=== PATIENT | female | born 1955 | race Caucasian/White ===

== ENCOUNTER 2021-05-28 13:04 | Outpatient (CLI) | payer MEDICARE ==
[2021-05-28 15:00] LABS: Bilirubin Neg (Negative); Blood, Urine Negative (Negative); Clarity Clear (Clear); Glucose, Urine (Dipstick) Normal (Negative); Ketone, Urine Negative (Negative); Leukocyte 25 (Negative); Nitrite Negative (Negative); Protein, Urine (Dipstick) Negative (Neg-Trace); Urobilinogen Normal mg/dL (Less than 2); pH, Urine 6.5 (5.0-9.0)
[2021-05-28 15:03] LABS: #Basophils 0.1 10x3/uL (0.0-0.2); #Eosinphils 0.2 10x3/uL (0.0-0.5); #Monocytes 0.5 10x3/uL (0.0-1.1); #Neutrophils 4.5 10x3/uL (1.5-8.4); %Basophils 0.9 % (0.0-2.0); %Eosinophils 2.4 % (0.0-6.0); %Lymphocytes 32.5 % (18.0-47.0); %Monocytes 6.7 % (0.0-10.0); %Neutrophils 57.4 % (40.0-75.0); Hemoglobin 13.5 g/dL (12.0-15.5); Mean Corpuscular HGB CONC 32.9 g/dL (32.0-36.0); Mean Corpuscular Hemoglobin 31.8 pg (27.0-33.0); Mean Corpuscular Volume 96.5 fl (81.6-98.3); Mean Platelet Volume 11.3 fl (7.4-10.4); Platelet Count 227 10x3/uL (150-450); RBC Distribution Width 12.5 % (11.5-14.5); Red Blood Cell (RBC) Count 4.25 10x6/uL (3.90-5.03); White Blood Cell (WBC) Count 7.9 10x3/uL (3.5-10.5)
[2021-05-28 15:13] LABS: Anion Gap 12 mmol/L (10-20); BUN (Urea Nitrogen) 21 mg/dL (9.8-20.1); Calc. Creatinine Clearance 0 mL/min (70-130); Calcium 9.2 mg/dL (7.8-10.44); Carbon Dioxide 27 mmol/L (23-31); Chloride 107 mmol/L (98-107); Glucose 82 mg/dL (80-115); Sodium 142 mmol/L (136-145)
[2021-05-28 15:18] LABS: Bacteria/HPF 1+ HPF (None Seen); RBC/HPF 0-3 HPF (0-3); Squamous Epithelial 0-3 HPF (0-3)
[2021-05-29 12:00] LABS: SARS-CoV-2 PCR by NAA Not Detected (NotDetected)
== END 2021-05-28 13:05 | disposition home or self-care (01) ==
LOC: LABBT 13:04
PROVIDERS: ATTEND Orthopaedic Surgery
DX: Z01.818 Encounter for other preprocedural examination (principal); M16.12 Unilateral primary osteoarthritis, left hip; Z20.822 Contact with and (suspected) exposure to COVID-19
CPT/HCPCS: 80048; 85025; 87081; 93005; U0003; U0005; 81003; 81015; 93010

== ENCOUNTER 2021-06-02 06:27 | Day surgery (SDC) | payer MEDICARE ==
[2021-05-29 13:28] VITALS: BMI 36.6
[2021-06-02] MEDS ORDERED: ceFAZolin 2 GM/DEX 5% 100 ML BAG ONE (07:37)
[2021-06-02] MEDS ORDERED: Sodium Chloride 0.9% 100 ML ONE (07:37)
[2021-06-02] MEDS ORDERED: Tranexamic Acid 1,000 MG/10 ML VIAL ONE (07:37)
[2021-06-02] MEDS ORDERED: Vancomycin 1.5 GRAM/300 ML BAG 1.5 GM in Premix Bag 1 BAG IVPB SCH (07:45)
[2021-06-02] MEDS ORDERED: Midazolam HCl 2 mg/2 ml Vial ONE (07:51)
[2021-06-02] MEDS ORDERED: Fentanyl 100 MCG/2 ML VIAL ONE ×3 (07:51→11:45)
[2021-06-02 08:31] LABS: INR-International Normal Ratio 1.3
[2021-06-02 08:32] LABS: PTT 30.4 sec (22.9-36.1)
[2021-06-02] MEDS ORDERED: Propofol 500 MG/50 ML VIAL ONE (09:04)
[2021-06-02] MEDS ORDERED: PROPOFOL 200 MG/20 ML VIAL ONE (09:22)
[2021-06-02] MEDS ORDERED: ePHEDrine 50 MG/ML VIAL ONE (09:22)
[2021-06-02] MEDS ORDERED: Bupivacaine HCl 0.5%/Epinephrine 1:200,000/PF 30 ml Vial ONE (09:22)
[2021-06-02] MEDS ORDERED: Phenylephrine 10 MG/ML VIAL ONE (09:22)
[2021-06-02] MEDS ORDERED: Bupivacaine PF 0.5% 30 ML VIAL ONE (10:07)
[2021-06-02] MEDS ORDERED: PACU-Morphine 4MG/ML VIAL SLOW IVP PRN (10:18)
[2021-06-02] MEDS ORDERED: Promethazine HCl 25 MG/ML VIAL IVPB PRN (10:18)
[2021-06-02] MEDS ORDERED: Ondansetron HCl/PF 4 MG/2 ML Vial IVP PRN (10:18)
[2021-06-02] MEDS ORDERED: Promethazine HCl 25 MG/ML VIAL IM PRN (10:18)
[2021-06-02] MEDS ORDERED: hydrALAZINE 20 MG/ML VIAL ONE (11:27)
== END 2021-06-02 14:40 | disposition home or self-care (01) ==
LOC: SDC 06:27
PROVIDERS: ATTEND Orthopaedic Surgery
PROC: 0SRB04A Replacement of Left Hip Joint with Ceramic on Polyethylene Synthetic Substitute, Uncemented, Open Approach (ICD-10-PCS; principal; 2021-06-02)
PROC: 3E0T3BZ Introduction of Anesthetic Agent into Peripheral Nerves and Plexi, Percutaneous Approach (ICD-10-PCS; 2021-06-02)
DX: M16.12 Unilateral primary osteoarthritis, left hip (principal); I10 Essential (primary) hypertension; E03.9 Hypothyroidism, unspecified; M19.90 Unspecified osteoarthritis, unspecified site; E66.9 Obesity, unspecified; Z68.36 Body mass index [BMI] 36.0-36.9, adult; Z87.891 Personal history of nicotine dependence; Z79.899 Other long term (current) drug therapy
CPT/HCPCS: 85610; 85730; C1776; J0360; J2250; J2704; J3010; J3370; J3490; S0020

== ENCOUNTER 2024-04-24 10:18 | Outpatient (CLI) | payer MEDICARE ==
[2024-04-24 12:31] LABS: INR-International Normal Ratio 1.3; Prothrombin Time 16.7 sec (12.0-14.7)
== END 2024-04-24 10:19 | disposition home or self-care (01) ==
LOC: LABBT 10:18
PROVIDERS: ATTEND Student in an Organized Health Care Education/Training Program
DX: Z01.818 Encounter for other preprocedural examination (principal); M16.11 Unilateral primary osteoarthritis, right hip
CPT/HCPCS: 71046; 85610; 93005; 93010

== ENCOUNTER 2024-05-01 05:35 | Observation (INO) | payer MEDICARE ==
[2024-04-24 10:53] VITALS: BMI 34.9
[2024-04-24 12:17] LABS: #Basophils 0.05 10x3/uL (0.0-0.2); %Basophils 0.8 % (0.0-1.0); %Eosinophils 2.3 % (0.0-10.0); %Lymphocytes 21.8 % (21.0-51.0); %Monocytes 6.3 % (0.0-10.0); %Neutrophils 68.5 % (42.0-75.0); Hematocrit 42.2 % (36.0-47.0); Hemoglobin 13.6 g/dL (12.0-16.0); Mean Corpuscular HGB CONC 32.2 g/dL (32.0-36.0); Mean Corpuscular Hemoglobin 30.9 pg (27.0-31.0); Mean Corpuscular Volume 95.9 fL (78.0-98.0); Mean Platelet Volume 11.5 fL (7.4-10.4); Platelet Count 202 10x3/uL (130-400); RBC Distribution Width 12.6 % (11.5-14.5)
[2024-04-24 12:50] LABS: Anion Gap 13 mmol/L (10-20); BUN (Urea Nitrogen) 19 mg/dL (9.8-20.1); Calc. Creatinine Clearance 0 mL/min (70-130); Calcium 9.1 mg/dL (7.8-10.44); Carbon Dioxide 27 mmol/L (23-31); Chloride 104 mmol/L (98-107); Estimated GFR 94; Glucose 106 mg/dL (80-115); Potassium 3.7 mmol/L (3.5-5.1); Sodium 140 mmol/L (136-145)
[2024-05-01] MEDS ORDERED: Lidocaine 1% MPF 2 ML VIAL ONE (06:14)
[2024-05-01] MEDS ORDERED: Sodium Chloride 0.9% 100 ML ONE (06:14)
[2024-05-01] MEDS ORDERED: Vancomycin (BATCH) 1.5 GM/300 ML BAG ONE (06:14)
[2024-05-01] MEDS ORDERED: Tranexamic Acid 1,000 MG/10 ML VIAL ONE (06:14)
[2024-05-01] MEDS ORDERED: fentaNYL PF 100 MCG/2 ML SYRINGE ONE (06:18)
[2024-05-01] MEDS ORDERED: Propofol 500 MG/50 ML VIAL ONE (06:22)
[2024-05-01] MEDS ORDERED: Midazolam HCl 2 mg/2 ml Vial ONE (06:44)
[2024-05-01] MEDS ORDERED: fentaNYL 50 mcg/mL 1 mL Vial ONE ×3 (06:44→11:17)
[2024-05-01] MEDS ORDERED: CEFAZOLIN 2 GM VIAL ONE (06:58)
[2024-05-01] MEDS ORDERED: Sodium Chloride 0.9% 10 ML ONE (07:04)
[2024-05-01 07:12] LABS: INR-International Normal Ratio 1.3; PTT 24.4 sec (22.9-36.1); Prothrombin Time 15.8 sec (12.0-14.7)
[2024-05-01] MEDS ORDERED: Ropivacaine 0.5% HCl/PF (150 MG/30 ML VIAL) ONE (07:12)
[2024-05-01] MEDS ORDERED: PHENYLEPHRINE-NS 100 MCG/ML 10 ML SYRINGE ONE ×2 (08:07→08:32)
[2024-05-01] MEDS ORDERED: Ondansetron HCl/PF 4 MG/2 ML Vial IVP PRN (08:27)
[2024-05-01] MEDS ORDERED: Promethazine HCl 25 MG/ML VIAL IM PRN ×2 (08:27→10:29)
[2024-05-01] MEDS ORDERED: Glycopyrrolate 0.2 MG/ML 5 ML SYRINGE ONE (08:54)
[2024-05-01] MEDS ORDERED: ePHEDrine Sulfate 50 MG/10 ML VIAL ONE (09:02)
[2024-05-01] MEDS ORDERED: Dexamethasone 4 mg/ml Vial ONE (09:07)
[2024-05-01] MEDS ORDERED: Ondansetron PF 4 MG/2 ML Vial ONE (09:07)
[2024-05-01] MEDS ORDERED: Zolpidem Tartrate 5 MG TAB PO PRN (10:29)
[2024-05-01] MEDS ORDERED: diphenhydrAMINE 25 MG CAP PO PRN (10:29)
[2024-05-01] MEDS ORDERED: Morphine 4 MG/ML VIAL SLOW IVP PRN (10:29)
[2024-05-01] MEDS ORDERED: Ondansetron PF 4 MG/2 ML Vial IVP PRN (10:29)
[2024-05-01] MEDS: Acetaminophen 500 MG TAB PO SCH (12:34)
[2024-05-01] MEDS: oxyCODONE 5 MG TAB PO PRN (12:36)
[2024-05-01] MEDS: Sodium Chloride 0.9% 1,000 ML IV SCH (12:38)
[2024-05-01] MEDS: CEFAZOLIN 2 GM in Sodium Chloride 0.9% 100 ML IVPB SCH (16:19)
[2024-05-01] MEDS: Senokot S 8.6-50 MG TAB PO SCH (21:01)
[2024-05-01] MEDS: Pregabalin 75 MG CAP PO SCH (21:02)
[2024-05-01] MEDS: Ferrous Gluconate 324 MG TAB PO SCH (21:02)
[2024-05-02 05:22] LABS: Anion Gap 10 mmol/L (10-20); BUN (Urea Nitrogen) 16 mg/dL (9.8-20.1); Calc. Creatinine Clearance 105 mL/min (70-130); Calcium 8.6 mg/dL (7.8-10.44); Carbon Dioxide 26 mmol/L (23-31); Chloride 105 mmol/L (98-107); Estimated GFR 94; Glucose 114 mg/dL (80-115); Sodium 137 mmol/L (136-145)
[2024-05-02 05:29] LABS: Hematocrit 34.5 % (36.0-47.0); Hemoglobin 11.7 g/dL (12.0-16.0); Mean Corpuscular HGB CONC 33.9 g/dL (32.0-36.0); Mean Corpuscular Hemoglobin 31.4 pg (27.0-31.0); Mean Corpuscular Volume 92.5 fL (78.0-98.0); Mean Platelet Volume 11.7 fL (7.4-10.4); Platelet Count 184 10x3/uL (130-400); RBC Distribution Width 12.9 % (11.5-14.5); Red Blood Cell (RBC) Count 3.73 mill/uL (4.20-5.40)
[2024-05-02 08:10] VITALS: TEMP 98.3
[2024-05-02] MEDS: Multivitamin W/ Minerals 1 TAB PO SCH (09:43)
[2024-05-02] MEDS: Aspirin 81 mg Enteric Coated Tablet PO SCH (09:44)
[2024-05-02 10:11] VITALS: BP 172/73
== END 2024-05-02 10:29 | disposition home or self-care (01) ==
LOC: SDC 05:35 → SURG B 13:00
PROVIDERS: ADMIT Student in an Organized Health Care Education/Training Program; ATTEND Student in an Organized Health Care Education/Training Program
PROC: 3E0T3BZ Introduction of Anesthetic Agent into Peripheral Nerves and Plexi, Percutaneous Approach (ICD-10-PCS; principal; 2024-05-01)
PROC: 0SR901Z Replacement of Right Hip Joint with Metal Synthetic Substitute, Open Approach (ICD-10-PCS; 2024-05-01)
DX: M16.11 Unilateral primary osteoarthritis, right hip (principal); I10 Essential (primary) hypertension; E03.9 Hypothyroidism, unspecified; Z96.642 Presence of left artificial hip joint; Z87.59 Personal history of other complications of pregnancy, childbirth and the puerperium; Z79.899 Other long term (current) drug therapy
CPT/HCPCS: 27130; 64999; 72170; 73502; 80048 ×2; 85025; 85027; 85610; 85730; 86850; 86900; 86901; 87081; 97110; 97116 ×2; 97530; 97535; C1713; C1776; J1100; J2250; J2405; J2704; J2795; J3010; J3370; 36415

== ENCOUNTER 2024-06-06 14:34 | Inpatient (IN) | payer MEDICARE ==
[2024-06-06 16:33] LABS: #Basophils 0.03 10x3/uL (0.0-0.2); %Basophils 0.5 % (0.0-1.0); %Eosinophils 0.6 % (0.0-10.0); %Lymphocytes 23.5 % (21.0-51.0); %Monocytes 4.8 % (0.0-10.0); %Neutrophils 70.1 % (42.0-75.0); Hematocrit 35.2 % (36.0-47.0); Hemoglobin 11.7 g/dL (12.0-16.0); Mean Corpuscular HGB CONC 33.2 g/dL (32.0-36.0); Mean Corpuscular Hemoglobin 30.3 pg (27.0-31.0); Mean Corpuscular Volume 91.2 fL (78.0-98.0); Mean Platelet Volume 10.3 fL (7.4-10.4); Platelet Count 292 10x3/uL (130-400); RBC Distribution Width 12.6 % (11.5-14.5); Red Blood Cell (RBC) Count 3.86 mill/uL (4.20-5.40)
[2024-06-06 17:00] LABS: ALT (SGPT) 11 U/L (8-55); AST (SGOT) 15 U/L (5-34); Alkaline Phosphatase 70 U/L (40-110); Anion Gap 13 mmol/L (10-20); BUN (Urea Nitrogen) 11 mg/dL (9.8-20.1); Bilirubin, Total 0.3 mg/dL (0.2-1.2); CRP,High Sensitivity (Inhouse) 6.74 mg/dL (< or = 0.5); Calc. Creatinine Clearance 0 mL/min (70-130); Calcium 9.3 mg/dL (7.8-10.44); Carbon Dioxide 23 mmol/L (23-31); Chloride 106 mmol/L (98-107); Estimated GFR 96; Globulin 4.6 g/dL (2.4-3.5); Glucose 95 mg/dL (80-115); Potassium 4.4 mmol/L (3.5-5.1); Protein, Total 7.6 g/dL (5.8-8.1); Sodium 138 mmol/L (136-145)
[2024-06-06 20:04] VITALS: BMI 35.1
[2024-06-06] MEDS ORDERED: Acetaminophen 500 MG TAB PO PRN (22:23)
[2024-06-06 23:01] LABS: INR-International Normal Ratio 1.4; Prothrombin Time 16.9 sec (12.0-14.7)
[2024-06-06] MEDS: Bisoprolol Fumarate/HCTZ 5 mg/6.25 mg Tablet PO SCH (23:01)
[2024-06-07] MEDS: Lactated Ringer's 500 ML IV SCH (01:19)
[2024-06-07] MEDS: Levothyroxine Sodium 125 MCG TAB PO SCH (05:11)
[2024-06-07] MEDS ORDERED: PROPOFOL 20 ML ONE (08:46)
[2024-06-07] MEDS ORDERED: fentaNYL PF 100 MCG/2 ML SYRINGE ONE (08:46)
[2024-06-07] MEDS ORDERED: Rocuronium Bromide 10 MG/ML (10ML VIAL) ONE (08:47)
[2024-06-07] MEDS ORDERED: Lidocaine 1% PF 5 ML VIAL ONE (08:47)
[2024-06-07] MEDS ORDERED: CEFAZOLIN 2 GM VIAL ONE (10:13)
[2024-06-07] MEDS ORDERED: ePHEDrine Sulfate 50 MG/10 ML VIAL ONE (11:50)
[2024-06-07] MEDS ORDERED: Promethazine HCl 25 MG/ML VIAL IM PRN ×2 (12:19→14:46)
[2024-06-07] MEDS ORDERED: HYDROmorphone 2 MG/ML VIAL SLOW IVP PRN (12:19)
[2024-06-07] MEDS ORDERED: Ondansetron HCl/PF 4 MG/2 ML Vial IVP PRN (12:19)
[2024-06-07 12:26] LABS: RBC Count-Automated (BF) 42449 /cu.mm; WBC/Nucleated-Auto (BF) 3583 /cu.mm
[2024-06-07 12:32] LABS: Body Fluid Source Synovial Fluid
[2024-06-07 12:33] LABS: BF Color Yellow; Clarity Cloudy/Turbid (Clear); Tube # EDTA
[2024-06-07] MEDS ORDERED: Vancomycin 1 GM VIAL ONE ×2 (12:33→12:51)
[2024-06-07] MEDS ORDERED: Tobramycin Sulfate 1.2 GM VIAL ONE (12:33)
[2024-06-07 12:56] LABS: BF Segmented Neutrophils 91 %; Cell Count Non Hematic 8 %; Lymphocytes 1 %
[2024-06-07] MEDS ORDERED: fentaNYL 50 mcg/mL 1 mL Vial ONE (13:00)
[2024-06-07] MEDS ORDERED: PHENYLEPHRINE-NS 100 MCG/ML 10 ML SYRINGE ONE (13:20)
[2024-06-07] MEDS ORDERED: SUGAMMADEX SODIUM 200 MG/2 ML VIAL ONE (13:50)
[2024-06-07] MEDS ORDERED: Ondansetron PF 4 MG/2 ML Vial ONE (13:50)
[2024-06-07] MEDS ORDERED: Ondansetron PF 4 MG/2 ML Vial IVP PRN (14:46)
[2024-06-07] MEDS ORDERED: diphenhydrAMINE 25 MG CAP PO PRN (14:46)
[2024-06-07] MEDS ORDERED: Morphine 4 MG/ML VIAL SLOW IVP PRN (14:46)
[2024-06-07] MEDS ORDERED: oxyCODONE 5 MG TAB PO PRN (14:56)
[2024-06-07] MEDS: Bisoprolol Fumarate/HCTZ 5 mg/6.25 mg Tablet PO SCH (17:30)
[2024-06-07] MEDS: Acetaminophen 500 MG TAB PO SCH (17:58)
[2024-06-07] MEDS ORDERED: Vancomycin 1.5 GM in Sodium Chloride 0.9% 250 ML 300 ML IVPB SCH (21:00)
[2024-06-07] MEDS: traMADol HCl 50 MG TAB PO PRN (21:04)
[2024-06-07] MEDS: Ferrous Gluconate 324 MG TAB PO SCH (21:05)
[2024-06-07] MEDS: Aspirin 81 mg Enteric Coated Tablet PO SCH (21:05)
[2024-06-07] MEDS: Vancomycin (BATCH) 1.5 GM in Premix 1 BAG IVPB SCH (21:05)
[2024-06-07] MEDS: Cefepime 2 GM in Sodium Chloride 0.9% 100 ML IVPB SCH (21:05)
[2024-06-07] MEDS: Senokot S 8.6-50 MG TAB PO SCH (21:05)
[2024-06-08 04:58] LABS: #Basophils 0.03 10x3/uL (0.0-0.2); #Eosinophils Less than 0.03 10x3/uL (0.0-0.7); %Basophils 0.3 % (0.0-1.0); %Eosinophils 0.2 % (0.0-10.0); %Lymphocytes 14.9 % (21.0-51.0); %Neutrophils 77.2 % (42.0-75.0); Hematocrit 26.7 % (36.0-47.0); Hemoglobin 8.8 g/dL (12.0-16.0); Mean Corpuscular Hemoglobin 30.3 pg (27.0-31.0); Mean Corpuscular Volume 92.1 fL (78.0-98.0); Mean Platelet Volume 10.5 fL (7.4-10.4); Platelet Count 302 10x3/uL (130-400); RBC Distribution Width 12.7 % (11.5-14.5)
[2024-06-08 05:14] LABS: Anion Gap 16 mmol/L (10-20); BUN (Urea Nitrogen) 13 mg/dL (9.8-20.1); Calc. Creatinine Clearance 111 mL/min (70-130); Carbon Dioxide 22 mmol/L (23-31); Chloride 105 mmol/L (98-107); Estimated GFR 95; Glucose 104 mg/dL (80-115); Potassium 4.1 mmol/L (3.5-5.1); Sodium 139 mmol/L (136-145)
[2024-06-08] MEDS: Lactated Ringer's 1,000 ML IV SCH (06:32)
[2024-06-08] MEDS ORDERED: Lactated Ringer's 500 ML IV SCH (06:45)
[2024-06-08] MEDS: Lactated Ringer's 500 ML IV SCH (07:38)
[2024-06-08] MEDS: Multivitamin W/ Minerals 1 TAB PO SCH (09:12)
[2024-06-09 05:32] LABS: Hematocrit 24.1 % (36.0-47.0); Hemoglobin 7.6 g/dL (12.0-16.0); Mean Corpuscular HGB CONC 31.5 g/dL (32.0-36.0); Mean Corpuscular Volume 95.3 fL (78.0-98.0); Mean Platelet Volume 11.6 fL (7.4-10.4); Platelet Count 221 10x3/uL (130-400); RBC Distribution Width 13.2 % (11.5-14.5); Red Blood Cell (RBC) Count 2.53 mill/uL (4.20-5.40)
[2024-06-09 06:47] LABS: Anion Gap 13 mmol/L (10-20); BUN (Urea Nitrogen) 11 mg/dL (9.8-20.1); Calc. Creatinine Clearance 116 mL/min (70-130); Carbon Dioxide 20 mmol/L (23-31); Chloride 109 mmol/L (98-107); Estimated GFR 96; Glucose 90 mg/dL (80-115); Potassium 3.4 mmol/L (3.5-5.1); Sodium 139 mmol/L (136-145)
[2024-06-09] MEDS: Rifampin 300 MG CAP PO SCH (08:55)
[2024-06-09 15:12] LABS: Vancomycin, Random 45.9 ug/mL (See Comment)
[2024-06-10 05:28] LABS: Hematocrit 22.6 % (36.0-47.0); Hemoglobin 7.3 g/dL (12.0-16.0); Mean Corpuscular HGB CONC 32.3 g/dL (32.0-36.0); Mean Corpuscular Hemoglobin 29.8 pg (27.0-31.0); Mean Corpuscular Volume 92.2 fL (78.0-98.0); Mean Platelet Volume 10.4 fL (7.4-10.4); Platelet Count 270 10x3/uL (130-400); Red Blood Cell (RBC) Count 2.45 mill/uL (4.20-5.40)
[2024-06-10 12:09] LABS: Bacteria/HPF None Seen HPF (None Seen); Bilirubin Negative (Negative); Blood, Urine Negative (Negative); CAUTI Indications for Culture Dysuria,urgency,freq; Clarity Clear (Clear); Glucose, Urine (Dipstick) Normal (Negative); Ketone, Urine Negative (Negative); Leukocyte Negative Leu/uL (Negative); Nitrite Negative (Negative); Protein, Urine (Dipstick) Negative (Neg-Trace); RBC/HPF 0-3 HPF (0-3); Specific Gravity, Urine 1.011 (1.002-1.036); Squamous Epithelial 0-3 HPF (0-3); Urobilinogen Normal mg/dL (Less than 2); WBC/HPF 0-3 HPF (0-3)
[2024-06-10 12:10] LABS: Urine Culture Reflex No No
[2024-06-10] MEDS: Cefepime 2 GM in Sodium Chloride 0.9% 100 ML IVPB SCH (15:05)
[2024-06-10 15:27] LABS: Vancomycin, Random 18.3 ug/mL (See Comment)
[2024-06-10] MEDS ORDERED: Cefepime 2 GM in Sodium Chloride 0.9% 100 ML IVPB SCH (21:00)
[2024-06-10] MEDS: VANCOMYCIN 1.25 GM/250 ML BAG 1.25 GM in Premix 1 BAG IVPB SCH (21:28)
[2024-06-10] MEDS: Zolpidem Tartrate 5 MG TAB PO PRN (21:28)
[2024-06-11] MEDS: hydrALAZINE 20 MG/ML VIAL SLOW IVP SCH (04:11)
[2024-06-11 05:31] LABS: Hematocrit 21.5 % (36.0-47.0); Mean Corpuscular HGB CONC 32.6 g/dL (32.0-36.0); Mean Corpuscular Hemoglobin 29.5 pg (27.0-31.0); Mean Corpuscular Volume 90.7 fL (78.0-98.0); Mean Platelet Volume 10.4 fL (7.4-10.4); Platelet Count 286 10x3/uL (130-400); RBC Distribution Width 13.1 % (11.5-14.5); Red Blood Cell (RBC) Count 2.37 mill/uL (4.20-5.40)
[2024-06-11 06:58] LABS: Anion Gap 18 mmol/L (10-20); BUN (Urea Nitrogen) 9 mg/dL (9.8-20.1); Calc. Creatinine Clearance 107 mL/min (70-130); Calcium 8.4 mg/dL (7.8-10.44); Carbon Dioxide 22 mmol/L (23-31); Chloride 105 mmol/L (98-107); Estimated GFR 94; Glucose 89 mg/dL (80-115); Potassium 2.7 mmol/L (3.5-5.1); Sodium 142 mmol/L (136-145)
[2024-06-11] MEDS ORDERED: Vancomycin (BATCH) 1.5 GM in Premix 1 BAG IVPB SCH (09:00)
[2024-06-11] MEDS: Potassium Chloride 20 MEQ TAB PO SCH (09:32)
[2024-06-11 11:04] VITALS: BMI 35.1
[2024-06-11] MEDS: CEFAZOLIN 2 GM in Sodium Chloride 0.9% 100 ML IVPB SCH (21:08)
[2024-06-12 05:18] LABS: #Basophils 0.05 10x3/uL (0.0-0.2); %Basophils 0.9 % (0.0-1.0); %Eosinophils 3.5 % (0.0-10.0); %Lymphocytes 27.7 % (21.0-51.0); %Monocytes 6.6 % (0.0-10.0); %Neutrophils 60.8 % (42.0-75.0); Hematocrit 21.2 % (36.0-47.0); Hemoglobin 6.7 g/dL (12.0-16.0); Mean Corpuscular HGB CONC 31.6 g/dL (32.0-36.0); Mean Corpuscular Volume 91.8 fL (78.0-98.0); Mean Platelet Volume 9.9 fL (7.4-10.4); Platelet Count 326 10x3/uL (130-400); RBC Distribution Width 13.2 % (11.5-14.5); Red Blood Cell (RBC) Count 2.31 mill/uL (4.20-5.40)
[2024-06-12 05:28] LABS: Anion Gap 11 mmol/L (10-20); BUN (Urea Nitrogen) 7 mg/dL (9.8-20.1); Calc. Creatinine Clearance 106 mL/min (70-130); Calcium 8.3 mg/dL (7.8-10.44); Carbon Dioxide 26 mmol/L (23-31); Chloride 107 mmol/L (98-107); Estimated GFR 94; Glucose 97 mg/dL (80-115); Sodium 140 mmol/L (136-145)
[2024-06-12] MEDS: hydrALAZINE 25 MG TAB PO SCH (08:31)
[2024-06-12] MEDS ORDERED: Sodium Bicarbonate 2.5 MEQ/5 ML SDV ONE (12:53)
[2024-06-12] MEDS ORDERED: Lidocaine 1% PF 5 ML VIAL ONE (12:53)
[2024-06-12] MEDS: CEFAZOLIN 2 GM in Sodium Chloride 0.9% 100 ML IVPB SCH (15:02)
[2024-06-12 15:15] LABS: Hematocrit 28.4 % (36.0-47.0); Hemoglobin 9.4 g/dL (12.0-16.0)
[2024-06-13 05:57] LABS: Hematocrit 27.6 % (36.0-47.0); Hemoglobin 9.2 g/dL (12.0-16.0); Mean Corpuscular HGB CONC 33.3 g/dL (32.0-36.0); Mean Corpuscular Volume 89.9 fL (78.0-98.0); Mean Platelet Volume 10.4 fL (7.4-10.4); Platelet Count 374 10x3/uL (130-400); RBC Distribution Width 13.9 % (11.5-14.5); Red Blood Cell (RBC) Count 3.07 mill/uL (4.20-5.40)
[2024-06-13] MEDS: hydrALAZINE 25 MG TAB PO SCH ×2 (08:30→14:52)
[2024-06-13 14:53] VITALS: BP 172/93
[2024-06-13 14:57] VITALS: TEMP 98
== END 2024-06-13 15:31 | disposition home or self-care (01) | DRG 467 ==
LOC: ERS 14:34 → MSONC 18:42 → SURG A 06-07 20:23
PROVIDERS: ADMIT Student in an Organized Health Care Education/Training Program; ATTEND Student in an Organized Health Care Education/Training Program
PROC: 0SR90JZ Replacement of Right Hip Joint with Synthetic Substitute, Open Approach (ICD-10-PCS; principal; 2024-06-07)
PROC: 0SP90JZ Removal of Synthetic Substitute from Right Hip Joint, Open Approach (ICD-10-PCS; 2024-06-07)
PROC: 02HV33Z Insertion of Infusion Device into Superior Vena Cava, Percutaneous Approach (ICD-10-PCS; 2024-06-12)
PROC: B5181ZA Fluoroscopy of Superior Vena Cava using Low Osmolar Contrast, Guidance (ICD-10-PCS; 2024-06-12)
PROC: B548ZZA Ultrasonography of Superior Vena Cava, Guidance (ICD-10-PCS; 2024-06-12)
DX: T84.51XA Infection and inflammatory reaction due to internal right hip prosthesis, initial encounter (principal); M00.051 Staphylococcal arthritis, right hip; B95.7 Other staphylococcus as the cause of diseases classified elsewhere; Y79.2 Prosthetic and other implants, materials and accessory orthopedic devices associated with adverse incidents; Y83.8 Other surgical procedures as the cause of abnormal reaction of the patient, or of later complication, without mention of misadventure at the time of the procedure; D64.9 Anemia, unspecified; I10 Essential (primary) hypertension; E03.9 Hypothyroidism, unspecified; E78.5 Hyperlipidemia, unspecified; M19.90 Unspecified osteoarthritis, unspecified site; Z79.82 Long term (current) use of aspirin; Z79.890 Hormone replacement therapy; Z79.899 Other long term (current) drug therapy
CPT/HCPCS: 36415; 36416; 36430; 36573; 72170; 80048; 80053; 80202; 81001; 82565; 85025; 85027; 85060; 85610; 86141; 86850; 86900; 86901; 87070; 87077; 87186; 87205; 87324; 87449; 88305; 88307; 88331; 89051; 97139; 99284; C1713; C1751; C1776; J0360; J0692; J2405; J2704; J3010; J3260; J3370; J7120; P9016